=== PATIENT | female | born 1990 | race Caucasian/White ===

== ENCOUNTER 2022-03-26 08:46 | Outpatient (REF) | payer OTHER, SELFPAY ==
[2022-03-26 11:33] LABS: Hematocrit 42.3 % (37.0-47.0); Hemoglobin 14.4 g/dl (12.0-16.0); Mean Corpuscular Hemoglobin 29.4 pg (27.0-33.0); Mean Corpuscular Volume 86.5 fL (80.0-98.0); Mean Platelet Volume 11.4 fL (9.4-12.3); Platelet Count 216 X10*3/uL (160-400); Red Blood Count 4.89 X10*6/uL (4.20-5.50); Red Cell Distribution Width 11.9 % (11.0-16.0); White Blood Count 4.2 X10*3/uL (4.8-10.8)
[2022-03-26 12:05] LABS: Alanine Aminotransferase 30 U/L (0-31); Albumin Level 4.5 g/dL (3.5-5.0); Alkaline Phosphatase 48 U/L (39-117); Anion Gap 13 (12-20); Aspartate Amino Transferase 22 U/L (5-31); Bilirubin Total 1.2 mg/dL (0.0-1.0); Blood Urea Nitrogen 10 mg/dL (9-16); Calcium 8.8 mg/dL (8.4-10.2); Carbon Dioxide 23 mmol/L (22-29); Chloride 108 mmol/L (96-108); Cholesterol 157 mg/dL; Estimated Glomerular Filt Rate > 60; Glucose Fasting 89 mg/dL (60-99); HDL Cholesterol 57 mg/dL; LDL Cholesterol Calculated 86 mg/dl; Potassium 4.3 mmol/L (3.3-5.1); Sodium 140 mmol/L (135-145); Total Protein 7.2 g/dL (6.5-8.0); Triglycerides 72 mg/dL
[2022-03-26 12:10] LABS: TSH reflex Free T4 1.85 uIU/mL (0.32-4.0)
== END 2022-03-26 08:47 | disposition home or self-care (01) ==
LOC: HO.WFDLDS 08:46
PROVIDERS: Visit Provider Hospitalist
DX: Z00.00 Encounter for general adult medical examination without abnormal findings (principal)
CPT/HCPCS: 36415; 80053; 80061; 84443; 85027

== ENCOUNTER 2022-06-04 13:04 | Outpatient (REF) | payer OTHER, SELFPAY ==
[2022-06-04 17:30] LABS: CT PCR NOT DETECTED (Not Detect.); NG PCR NOT DETECTED (Not Detect.)
[2022-06-05 10:23] LABS: BV Int Neg Control Negative (Negative); BV Int Pos Control Positive (Positive)
[2022-06-08 06:37] LABS: HPV mRNA E6/E7 rflx Not Detected (Not Detected)
== END 2022-06-04 13:05 | disposition home or self-care (01) ==
LOC: HO.LNP 13:04
PROVIDERS: Visit Provider Advanced Practice Midwife
DX: Z01.419 Encounter for gynecological examination (general) (routine) without abnormal findings (principal); Z11.3 Encounter for screening for infections with a predominantly sexual mode of transmission
CPT/HCPCS: 87480; 87491; 87510; 87591; 87624; 87660; 88142

== ENCOUNTER 2022-06-21 16:44 | Outpatient (REF) | payer OTHER, SELFPAY | END 2022-06-21 16:45 | disposition home or self-care (01) | LOC: HO.LNP 16:44 | PROVIDERS: Visit Provider Emergency Medicine | DX: R30.0 Dysuria (principal) | CPT/HCPCS: 87086 ==

== ENCOUNTER → 2022-07-21 11:00 | Outpatient (BNVA) | payer OTHER, SELFPAY | PROVIDERS: PCP Hospitalist; Visit Provider Advanced Practice Midwife | DX: Z30.017 Encounter for initial prescription of implantable subdermal contraceptive (principal) | CPT/HCPCS: 11983; 81025; J7307 ==

== ENCOUNTER → 2022-10-08 14:50 | Outpatient (BNVA) | payer OTHER, SELFPAY | PROVIDERS: PCP Hospitalist; Visit Provider Advanced Practice Midwife | DX: Z13.89 Encounter for screening for other disorder (principal) ==

== ENCOUNTER 2023-03-04 08:30 | Outpatient (AMB) | payer OTHER, SELFPAY ==
--- NOTE | 2023-03-04 08:34 | MHC.OFFVIS ---
Intake Vital Signs 03/04/23 08:37 Height 5 ft 4 in Weight 118 lb BMI 20.3 BP 108/66 Intake Visit Reasons: Nexplanon removal consult Intake Note: The patient agreed to use of a nuclear medical tech during this encounter. Scribed for GLEN Santos by Alexia Hennessy, nuclear medical tech, on 03/04/2023 at 8:48 am EST. Manager Clinical Research Required: No Information Interpreted: non-clinical & clinical Accompanied by: Self / Same As Patient Allergies Penicillins Allergy (Mild, Verified 03/04/23 08:37) Rash Sulfa (Sulfonamide Antibiotics) Allergy (Verified 03/04/23 08:37) Rash Is last menstrual period known: No HPI HPI Comments History of Present Illness Details She is here for Nexplanon removal consult. Reports she wants to remove Nexplanon because she has low libido, believes BC affects her hormonal level, has vaginal dryness and has been on BC since she was 18 years. Her and her partner wants to just do condoms for now to regulate body without BC. Nexplanon removal today. See procedure note. [facility] Medical History (Updated 03/04/23 @ 09:02 by Alexia Hennessy) Low libido Nexplanon removal Vaginal dryness Family History Mother Hypertension Hypercholesteremia Paternal Grandmother Cancer of uterus Social History Household Members: None Housing: Apartment Alcohol intake: never Patient Tobacco Use Status: Never used Tobacco e-Cigarette/Vaping Use: Never Used Substance Use Type: Marijuana Cognitive needs: No Hearing needs: No Vision needs: No Female Reproductive History Menstrual Age of Menarche: 14 control method: condoms Physical Exam Vital Signs: Last Vital Signs BP 108/66 03/04/23 08:37 BMI result Body Mass Index 20.3 Const General: cooperative, healthy appearing, comfortable, no acute distress, well developed, alert and awake Extrem General: Yes normal to inspection Left upper extremity: normal to inspection Office Procedures Contraception Insert/Removal Details Details: HPI She was counseled and now consented as to the risks and benefits including: bleeding, pain, scarring, nerve damage and infection. Patient agrees to proceed with the procedure. Procedure The patient was placed in a supine position with her non dominant left hand resting under her head. The insertion site was located: 8-10cm from the medial epicondyle notch of the humerus, posterior to the sulcus, between the triceps and biceps muscle. The area of the previous implant was identified and the distal tip located. This area was cleansed with an alcohol prep and 1 cc of 2% Lidocaine on a 25 gauge needle and syringe was utilized for adequate anesthesia to the insertion site. After ascertaining adequate anesthesia, the area was prepped with Betadine solution. The skin over the distal tip was incised with a #11 blade scalpel and the capsule was located and entered freeing the implant from the canal. The implant was removed with a gentle tug using a mosquito clamp and removed intact. Direct pressure was applied to the insertion site for hemostasis, minimal bleeding was observed. Steri strips, Tegaderm covering, gauze pads, and Alfredito wrap dressing were secured with paper tape. The patient tolerated the procedure well and left the office in good condition. Nexplanon removed without complication today. Plan Instructed to leave steri-strips in place for 3-5 days and gauze and bandage for 24 hours to help prevent infection. She can take Tylenol or ibuprofen for pain prn. She was instructed to go to ER if she experiences any increased pain, fever, redness, pus or drainage or flu like sx. Leave steri-strips in place for 3-5 days and gauze and bandage for 24 hours to help prevent infection. Can take Tylenol or ibuprofen for pain prn. Go to ER if she experiences any pain, fever, redness, or [place] sx. [address]359 - Removal Results AMB Test Urine AMB Test Urine Negative Last Edit by Maine Hernandez CMA on 03/04/23 08:43 Results Reviewed Results Reviewed: Laboratory Last Values [facility] Negative 03/04/23 08:43 Assessment & Plan Assessment & Plan (1) Encounter for surveillance of Nexplanon subdermal contraceptive: Code(s): Z30.46 - Encounter for surveillance of implantable subdermal contraceptive Plan: Discussed: Was counseled if she did a early removal her insurance may not cover for reinsertion. She was understandable. All of her questions and concerns were addressed to the best of my ability and shared decision making. She is agreeable to plan of care. (2) Vaginal dryness: Code(s): N89.8 - Other specified noninflammatory disorders of vagina Plan: Recommend Replens, [place] jelly, Astroglide or coconut oil for vaginal dryness. (3) Nexplanon removal: Code(s): Z30.46 - Encounter for surveillance of implantable subdermal contraceptive Plan: See procedure note. (4) Low libido: Code(s): R68.82 - Decreased libido Orders: Orders AMB HCG Urine Test Today Z32.02 - Encounter for test, result negative Coding Level of Care Code Procedure Only Diagnoses Encounter for surveillance of Nexplanon subdermal contraceptive Z30.46 Vaginal dryness N89.8 Nexplanon removal Z30.46 Low libido R68.82 CPT Codes Details - Contraception: 25481 - Removal ([id number])
[2023-03-04 08:37] VITALS: BP 108/66; BMI 20.3
== END 2023-03-04 09:27 | disposition home or self-care (01) ==
LOC: HO.HWS 08:30
PROVIDERS: PCP Hospitalist; Visit Provider Advanced Practice Midwife
DX: Z30.46 Encounter for surveillance of implantable subdermal contraceptive (principal); N89.8 Other specified noninflammatory disorders of vagina; R68.82 Decreased libido; Z32.02 Encounter for pregnancy test, result negative
CPT/HCPCS: 11982

== ENCOUNTER → 2023-03-04 08:30 | Outpatient (BNVA) | payer OTHER, SELFPAY | PROVIDERS: PCP Hospitalist; Visit Provider Advanced Practice Midwife | DX: Z30.46 Encounter for surveillance of implantable subdermal contraceptive (principal); R68.82 Decreased libido; N89.8 Other specified noninflammatory disorders of vagina; Z32.02 Encounter for pregnancy test, result negative | CPT/HCPCS: 11982; 81025 ==

== ENCOUNTER 2023-03-31 08:13 | Outpatient (AMB) | payer OTHER, SELFPAY ==
--- NOTE | 2023-03-31 08:20 | A.OFFPC_ITS ---
Vital Signs 03/31/23 08:27 Height 5 ft 4 in Weight 118 lb 4 oz BMI 20.3 BP 98/62 Blood Pressure Location Lt brachial Position Sitting Respiration 13 Pulse 76 Pulse Source Pulse Oximeter Temp 97.7 F Temp Source Temporal Artery Scan Pulse Oximetry (%) 98 Oxygen Delivery Method Room Air Intake Visit Reasons: physical Intake Note: Patient presents for a physical with concerns for a lump on her right breast. Patient would like to request a referral for dermatology due to recent family history increasing with skin cancer/discorders. Match Up Worker Required: No Accompanied by: Self / Same As Patient Allergies Penicillins Allergy (Mild, Verified 03/31/23 08:33) Rash Sulfa (Sulfonamide Antibiotics) Allergy (Verified 03/31/23 08:33) Rash Medication List - Last Reconciled 03/31/23 by Maribel Manuel CNP No Known Home Meds Tobacco use date assessed: 03/31/23 Dental Screening Dental Screen Date: 03/31/23 Did you have a dental visit in the last 12 months?: No Did you have a dental problem in the last 6 months where you did not have access to dental care?: No Was dental information given to patient?: Patient has dentist HPI HPI Comments History of Present Illness Details 32 y/o female presents for a complete ph ysical exam. She reports history of generalized anxiety disorder for which she has been seen at therapist weekly for the past 1 year. She denies history of depression. She notes she noticed a lump to her left breast a week ago. However, she has been experiencing intermittent soreness to the lump for the past 2 months. She requests dermatology evaluation d/t family h/o skin cancer. No acute symptoms at this time. She notes she is sexually active, in a monogamous relationship, and practices safe sex. She has no concerns for STD. She notes that her last pap smear test was in June 2023: normal. Recommended to follow up in 3 years. [facility] Medical History (Updated 03/31/23 @ 09:10 by Maribel Manuel CNP) Nexplanon removal Vaginal dryness Low libido Family History (Updated 03/31/23 @ 08:31 by Gema Cassidy) Mother Hypertension Hypercholesteremia Paternal Grandmother Cancer of uterus Father Skin disorder Autoimmune dermatitis Social History Household Members: None Housing: Apartment Alcohol intake: never Patient Tobacco Use Status: Never used Tobacco e-Cigarette/Vaping Use: Never Used Substance Use Type: Marijuana service: No Current occupational status: employed Cognitive needs: No Hearing needs: No Vision needs: No Female Reproductive History Menstrual Age of Menarche: 14 Questionnaire PHQ-9 Over the last 2 weeks, how often have you been bothered by any of the following problems? 1. Little interest or pleasure in doing things: several days 2. Feeling down, depressed, or hopeless: several days 3. Trouble falling or staying asleep, or sleeping too much: several days 4. Feeling tired or having little energy: several days 5. Poor appetite or overeating: several days 6. Feeling bad about yourself - or that you are a failure or have let yourself or your family down: several days 7. Trouble concentrating on things, such as reading the newspaper or watching television: more than half the days 8. Moving or speaking so slowly that other people could have noticed. Or the opposite - being so fidgety or restless that you have been moving around a lot more than usual: not at all 9. Thoughts that you would be better off or of hurting yourself in some way: not at all Total score: 8 Depression Screening Interpretation: Positive Source: Developed by Drs. Tony Maldonado, Leigh Ann Weeks, Yaya Rodriguez and colleagues, with an educational jose from [employer]. Thrive Questionnaire Date Thrive assessed: 03/31/23 I am a: Patient What is your living situation today?: I have a steady place to live Within the past 12 months, did the food you bought not last and you didn't have the money to get more?: Never true Within the past 12 months, did you worry whether your food would run out before you got money to buy more?: Never true Do you have trouble paying for medicines?: No Do you have trouble getting transportation to medical appointments?: No Do you have trouble paying your heating and electricity bill?: No Do you have trouble taking care of your child, family member or friend?: No Do you have trouble with day-to-day activities such as bathing, preparing meals, shopping, managing finances, etc.?: No Are you currently unemployed and looking for a job?: No Are you interested in more education?: No Please select the resources that you would like help with: None Currently or been in a relationship where the following occur: no concerns reported AUDIT C Alcohol Use Questionnaire (AUDIT-C) 1. How often do you have a drink containing alcohol?: Never 3. How often do you have six or more drinks on one occasion?: Never Total Score: 0 YURI-7 AMB Questionnaire YURI-7 Date YURI - 7 assessed: 09/01/22 Feeling nervous, anxious, or on edge: 1 = Several days Not being able to stop or control worryin = Several days Worrying too much about different things: 1 = Several days Trouble relaxin = Several days Being so restless that it is hard to sit still: 1 = Several days Becoming easily annoyed or irritable: 1 = Several days Feeling afraid as if something awful might happen: 1 = Several days Total YURI-7 score (0-4 normal; 5-9 mild; 10-14 moderate; 15-21 severe): 7 Source: Developed by Drs. Tony Maldonado, Leigh Ann Weeks, Yaya Rodriguez and colleagues, with an educational jose from [employer]. Review of Systems Const Details: Denies chills, Denies fatigue, Denies fever(s), Denies headache(s) and Denies weakness HEENT Denies change in vision, Denies dizziness, Denies headache(s), Denies hearing loss, Denies nasal congestion, Denies sinus pain, Denies sinus pressure and Denies sore throat Card Denies chest pain, Denies lightheadedness, Denies dyspnea and Denies other (palpitations) Resp Denies cough, Denies dyspnea and Denies wheezing GI Denies abdominal pain, Denies melena, Denies hematochezia, Denies change in bowel habits, Denies dyspepsia and Denies nausea Denies hematuria and Denies dysuria Musc Denies abnormal gait, Denies myalgias, Denies arthralgias, Denies numbness and Denies tingling Skin/Breast Reports lump to left breast, Denies rash, Denies unusual bruising and Denies wounds Neuro Denies abnormal gait, Denies dizziness, Denies headache(s), Denies memory loss, Denies numbness, Denies Sensory deficit (Neuro), Denies tingling and Denies weakness Psych Denies anxiety, Denies depression and Denies memory loss Endo Denies cold intolerance, Denies fatigue, Denies heat intolerance, Denies polydipsia and Denies polyuria Rolo/Lymph Denies easy bleeding and Denies easy bruising Aller/Immun Denies wheezing Physical exam (Primary Care) Vital Signs: Last Vital Signs Temp 97.7 F 03/31/23 08:27 Pulse 76 03/31/23 08:27 Resp 13 03/31/23 08:27 BP 98/62 03/31/23 08:27 Pulse Ox 98 03/31/23 08:27 Oxygen Delivery Method Room Air 03/31/23 08:27 BMI result Body Mass Index 20.3 Tobacco/Smoking Status: Tobacco use Status Tobacco use date assessed 03/31/23 03/31/23 08:31 Patient Tobacco Use Status Never used Tobacco 03/31/23 08:22 e-Cigarette/Vaping Use Never Used 03/31/23 08:22 PHQ-9: PHQ-9 Score PHQ-9: Total score 8 03/31/23 09:05 Depression Screening Interpretation: Positive Thrive Assessment: Date of Thrive Assessment Date Thrive assessed 03/31/23 03/31/23 09:05 Currently or been in a relationship where the following occur: no concerns reported Const Other: General: no acute distress, well developed, alert and awake Nutritional Appearance: well nourished Orientation/consciousness: patient oriented x3 HENMT Head is normocephalic Impacted cerumen to both ears occluding the TMs. Ear canals are normal Nasal turbinates and oropharynx are pink and moist Sinuses are nontender with palpation No auricular or cervical lymphadenopathy Ears: hearing grossly normal bilaterally and TM's normal bilaterally General nose exam: Normal external nose present and Normal nares present Mouth: Normal oral and palatal mucosa present and moist mucous membranes Teeth and gingiva: dentition normal Throat: Yes oropharynx normal Eyes Pupils: Equal, round and reactive pupils present and Pupil accommodation reflex normal EOM: EOMs intact bilaterally Neck Neck: Yes normal visual inspection, Yes no lymphadenopathy and Yes trachea midline Thyroid: Thyroid normal Carotids: no bruits Lymphatic: no lymphadenopathy noted Chest Chest palpation & inspection: normal inspection of the chest Resp Effort & Inspection: normal respiratory effort Auscultation: clear to auscultation bilaterally Cardio Rate: regular rate Rhythm: regular rhythm Heart sounds: S1 normal heart sound present, S2 normal heart sound present, no gallops, no murmurs and no rubs Bruits: no abdominal aortic bruits and no carotid bruits GI Palpation (GI): No Abdominal aortic bruit present, Soft to palpation, nontender, No hepatosplenomegaly present and No Rebound tenderness present Auscultation: normal bowel sounds General: Yes no CVA tenderness Back/Spine/Pelvis Back: no CVA tenderness Cervical Spine: cervical ROM normal and No Cervical spine tenderness Thoracic/Lumbar Spine: thoraco-lumbar ROM normal, No pain with thoraco-lumbar ROM, No thoracic spinal tenderness and No lumbar spinal tenderness Skin General: warm and dry. Normal skin color. Normal skin turgor. Tenderness to palpation at 08:00 o'clock to the left breast proximal to the sternum, normal breast tissues palpated, no lump, rash, edema, or overt trauma noted Lesions: no lesions Rashes: no rashes Trauma: no lacerations or abrasions Wounds: no wounds Nails: normal Neuro General: patient oriented x3, gait normal and CN's II-XI intact bilaterally Cranial nerves: Yes Equal, round and reactive pupils present Cognition (Neuro): normal cognition Gait exam (Neuro): Normal gait present Motor exam (neuro): 5/5 motor strength present throughout Sensory Exam: No Sensory deficit (Neuro) Deep tendon reflexes (DTR's): Right patellar reflex intensity grade: 2+ and Left patellar reflex intensity grade: 2+ Extrem General: Yes normal to inspection, No edema and No calf tenderness Psych Appearance: grossly normal Affect: normal affect Attitude: cooperative Thought process: Normal thought process present Assessment and Plan Assessment & Plan (1) Normal physical exam: Code(s): Z00.00 - Encounter for general adult medical examination without abnormal findings Plan: No significant physical restrictions or limitations noted Advised to schedule her next physical for a year from today Return with symptoms or concerns Verbalized understanding and agreed with the treatment plan. (2) Soreness breast: Code(s): N64.4 - Mastodynia Plan: Reports lump with intermittent tenderness to her left breast Tenderness to palpation at 08:00 o'clock to the left breast proximal to the sternum, normal breast tissues palpated, no lump, rash, edema, or overt trauma noted Ultrasound ordered May take Tylenol ibuprofen for pain or discomfort Warm compresses encouraged Follow-up with worsening or new symptoms Verbalized understanding and agreed with treatment plan. (3) Anxiety and depression: Code(s): F41.9 - Anxiety disorder, unspecified; F32.A - Depression, unspecified Plan: Reports history of generalized anxiety disorder. Denies history of depression PHQ-9 and YURI-7 scores revealed mild depression and anxiety Declines medication treatment Continue with weekly therapy Routine exercise encouraged May contact PCP if she changes her mind on medication treatment Follow-up with worsening or new symptoms Verbalized understanding and agreed with treatment plan. (4) Impacted cerumen of both ears: Code(s): H61.23 - Impacted cerumen, bilateral Plan: Impacted cerumen to both ears occluding the TMs. Ear canals are normal Normal hearing May return for cerumen removal with ear pain or impaired hearing Verbalized understanding and agreed with the plan. Orders: Orders US breast LT complete Today N64.4 - Mastodynia Coding Level of Care Code Est Pt Prev Care 18-39y(18435) Diagnoses Normal physical exam Z00.00 Soreness breast N64.4 Anxiety and depression F41.9; F32.A Impacted cerumen of both ears H61.23
[2023-03-31 08:27] VITALS: BP 98/62; PULSE 76; RESP 13; TEMP 36.5; O2SAT 98; BMI 20.3
== END 2023-03-31 08:57 | disposition home or self-care (01) ==
PROVIDERS: PCP Hospitalist; Visit Provider Nurse Practitioner Family
DX: Z00.00 Encounter for general adult medical examination without abnormal findings (principal); N64.4 Mastodynia; F41.9 Anxiety disorder, unspecified; F32.A Depression, unspecified; H61.23 Impacted cerumen, bilateral
CPT/HCPCS: 99395

== ENCOUNTER 2023-04-18 13:20 | Outpatient (REF) | payer OTHER, SELFPAY ==
--- NOTE | ~2023-04-18 | US_ITS ---
EXAMINATION: MM DIAGNOSTIC DIGITAL BREAST TOMOSYNTHESIS, BILATERAL US BREAST LIMITED, LEFT MAMMOGRAPHY: CLINICAL INFORMATION: 33-year-old female complaining of palpable area with associated tenderness left breast approximately 8:00-9:00 axis approximately 9 cm from the nipple. COMPARISON: Mammography: None. Baseline exam. TECHNIQUE: Digital breast tomosynthesis is performed in both the craniocaudal and mediolateral oblique views along with computer-aided detection (CAD). Synthesized 2D images are generated from the tomosynthesis. In addition, 3-D spot compression left CC and MLO views were included of the area of concern medial left breast. FINDINGS: The breasts are extremely dense, which lowers the sensitivity of mammography (ACR BI-RADS breast composition Category d). Diagnostic views demonstrate no suspicious masses, suspicious grouped calcifications, or areas of architectural distortion in either breast. In the area of palpable concern and tenderness, left breast 8-9 o'clock, approximately 9 cm from the nipple, there is no underlying mass, distortion, or other abnormality. Only normal heterogeneously to extremely dense breast tissue is noted. No mammographic correlate. ULTRASOUND: CLINICAL INFORMATION: 33-year-old female complaining of palpable area with associated tenderness left breast approximately 8:00-9:00 axis approximately 9 cm from the nipple. COMPARISON: None TECHNIQUE: Targeted sonographic evaluation left breast 8-9 o'clock axis was performed as guided by the patient using a high frequency linear transducer. Selected archived documentation. FINDINGS: LEFT BREAST: There is dense and heterogeneously dense breast parenchyma identified. No suspicious mass is seen. There is no pathologic acoustic shadowing. There is no cystic abnormality. No ultrasonographic correlate to the patient's complaint or palpable focus of concern at the 8-9 o'clock axis left breast. US/US breast LT limited mamm only IMPRESSION: There are no findings suspicious for malignancy in either breast. There is no imaging correlate to the focus of palpable concern and pain in the left breast 8-9 o'clock axis. Recommend clinical management. Decision to biopsy a palpable abnormality without imaging correlate must be determined on a clinical basis. Otherwise, recommend resuming annual routine mammographic screening at age 40. OVERALL ASSESSMENT: Mammography: BI-RADS 1 - Negative Ultrasound: BI-RADS 1 - Negative RECOMMENDATION: 1 year F/U Results were provided to the patient at time of visit by the technologist. This patient's information was entered into a reminder system with a target due date for their next mammogram.
== END 2023-04-18 13:21 | disposition home or self-care (01) ==
LOC: HO.MAMMO 13:20
PROVIDERS: PCP Nurse Practitioner Family; Visit Provider Nurse Practitioner Family
DX: N64.4 Mastodynia (principal)
CPT/HCPCS: 76642; 77062; 77066

== ENCOUNTER 2023-06-30 09:02 | Outpatient (AMB) | payer OTHER, SELFPAY ==
[2023-06-30 09:07] VITALS: BP 100/62; BMI 20.4
--- NOTE | 2023-06-30 09:07 | MHC.OFFVIS ---
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 She had her Nexplanon removed in February and she feels her mood has improved dramatically she still has vaginal dryness and she and her partner are working with different condoms and different lubricants but nothing perfect yet. 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 [facility] Medical History Nexplanon removal Vaginal dryness Low libido Family History Mother Hypertension Hypercholesteremia Paternal Grandmother Cancer of uterus Father Skin disorder Autoimmune dermatitis Social History Household Members: None Housing: Apartment Alcohol intake: never Patient Tobacco Use Status: Never used Tobacco e-Cigarette/Vaping Use: Never Used Substance Use Type: Marijuana service: No Current occupational status: employed Cognitive needs: No Hearing needs: No Vision needs: No Female Reproductive History Menstrual Age of Menarche: 14 Duration of menses: 3-5 days Date of last menstrual period: 06/11/23 control method: none Total pregnancies: 0 Date of last pap smear: 06/04/22 (negative) History of abnormal pap smear: No Physical Exam Vital Signs: Last Vital Signs BP 100/62 06/30/23 09:07 BMI result Body Mass Index 20.4 Const General: healthy appearing, comfortable, no acute distress, well developed and alert Nutritional Appearance: average body habitus Orientation/consciousness: patient oriented x3 Limitations: no limitations HEENT Head: Yes normocephalic Neck Neck: Yes normal visual inspection Chest Chest palpation & inspection: normal inspection of the chest Breast/axilla inspection: normal inspection of the breasts and normal inspection of the axillae Breast/axilla palpation: normal palpation of the breasts and normal palpation of the axillae Resp Effort & Inspection: normal respiratory effort GI Inspection: Yes normal to inspection, No Abdominal wall edema and No distended Palpation (GI): Soft to palpation and nontender Other: Vaginal discharge is white and completely consistent with normal healthy luteal phase discharge. Cervix nulliparous long close thick pink smooth uterus small anteverted mobile nontender adnexa nontender not enlarged good tone with Kegel General: Yes bladder normal to palpation External Female Exam: normal external appearance and normal appearance of the urethra Speculum Exam - Vagina: normal appearance of the vagina, normal palpation and normal vaginal discharge Speculum Exam - Cervix: normal appearance of the cervix, normal palpation and nontender Bimanual exam- vagina & uterus: normal bimanual exam, normal palpation, uterine size normal, bladder normal to palpation, consistency normal, normal palpation, uterine mobility normal, uterine shape normal, No Cervical tenderness present, non-tender and no cervical motion tenderness Bimanual Exam- Adnexa, other: normal adnexae, no masses, normal and No adnexal tenderness Neuro General: patient oriented x3 Assessment & Plan Assessment & Plan (1) Vaginal dryness: Code(s): N89.8 - Other specified noninflammatory disorders of vagina (2) Low libido: Code(s): R68.82 - Decreased libido (3) Cervical cancer screening: Comment: 06/04/22 pap is neg w neg hpv Code(s): Z12.4 - Encounter for screening for malignant neoplasm of cervix (4) Well woman exam with routine gynecological exam: Code(s): Z01.419 - Encounter for gynecological examination (general) (routine) without abnormal findings Plan -----Discussed in this visit the following: healthy balanced diet, regular and consistent exercise, getting recommended health screens, doing the best she can for her particular health concerns, kegel exercises, pap smear screening and followup recommendations, mammography screening and SBE, normal changes in cycles in her life stage--- . Discussed her perceptions after removal of the Nexplanon and her vaginal dryness and how she is managing it she is doing very well and I really did not have any other suggestions other than increasing water intake. We will see her every year reviewed screening intervals for Pap smear screening she sees her primary regularly and does not have any other health concerns. Coding Level of Care Code Est Pt Prev Care 18-39y(38699) Diagnoses Vaginal dryness N89.8 Low libido R68.82 Cervical cancer screening Z12.4 Well woman exam with routine gynecological exam Z01.419
== END 2023-06-30 09:47 | disposition home or self-care (01) ==
PROVIDERS: PCP Hospitalist; Visit Provider Advanced Practice Midwife
DX: Z01.419 Encounter for gynecological examination (general) (routine) without abnormal findings (principal); N89.8 Other specified noninflammatory disorders of vagina; R68.82 Decreased libido
CPT/HCPCS: 99395

== ENCOUNTER → 2023-06-30 09:02 | Outpatient (BNVA) | payer OTHER, SELFPAY | PROVIDERS: PCP Hospitalist; Visit Provider Advanced Practice Midwife ==

== ENCOUNTER 2023-12-26 13:02 | Outpatient (AMB) | payer OTHER, SELFPAY ==
[2023-12-26 13:03] VITALS: BP 102/70; BMI 20.3
--- NOTE | 2023-12-26 13:03 | A.OFFVIS_ITS ---
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 She had been on the Nexplanon for 4 different Nexplanon and she decided to go off of it because of decreased libido and dryness and mood changes. She has felt like things have gotten back to normal with her normal age appropriate libidoi.e.different from when she was very young person) but still normal and lubrication feels normal as well she has been using condoms however she feels very dry with them no matter what they do with lubrication. She remembers being on Loestrin FB control pills and did well with them but at the time she was worried about not remembering to take them consistently so that is why she change to Nexplanon at the time she feels like she would be much better remembering pills now and wants to go back on those because they worked very well for her. 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 She used to get heavy very crampy periods for 7 days when she was a teenager that is why she went on control pills her periods disappeared when she was on the Nexplanon x4, and they have now returned and she has been tracking them and they been mostly 20 day cycles with a couple that were 51 days and 1 of those she remembers that she took plan B in the middle of that cycle so that could have interrupted ovulation she otherwise has been aware of ovulation in the shorter cycles. Her last menstrual periods started December 16 so she is currently day 9 of her cycle so if this is going to be irregular 26 day cycle is probably too late to start the pills to interrupt ovulation so my recommendation to her is that she wait to the 1st or 2nd day of the next period, and start pills then. I reviewed danger signs and what to look for and she is aware and she would take the pills same time every day and thinks she will have no trouble script sent for the generic equivalents of her previous pill we will see her in 3-4 months [facility] Medical History Nexplanon removal Vaginal dryness Low libido Family History Mother Hypertension Hypercholesteremia Paternal Grandmother Cancer of uterus Father Skin disorder Autoimmune dermatitis Social History Household Members: None Housing: Apartment Alcohol intake: never Patient Tobacco Use Status: Never used Tobacco e-Cigarette/Vaping Use: Never Used Substance Use Type: Marijuana service: No Current occupational status: employed Cognitive needs: No Hearing needs: No Vision needs: No Female Reproductive History Menstrual Age of Menarche: 14 Duration of menses: 3-5 days Date of last menstrual period: 12/17/23 control method: none Date of last pap smear: 06/04/22 (negative) Physical Exam Vital Signs: Last Vital Signs BP 102/70 12/26/23 13:03 BMI result Body Mass Index 20.3 Assessment & Plan Assessment & Plan (1) control counseling: Code(s): Z30.09 - Encounter for other general counseling and advice on contraception Category: Medical Plan Patient is here to talk about control. She had been on the Nexplanon for 4 different Nexplanon and she decided to go off of it because of decreased libido and dryness and mood changes. She has felt like things have gotten back to normal with her normal age appropriate libidoi.e.different from when she was very young person) but still normal and lubrication feels normal as well she has been using condoms however she feels very dry with them no matter what they do with lubrication. She remembers being on Loestrin FB control pills and did well with them but at the time she was worried about not remembering to take them consistently so that is why she change to Nexplanon at the time she feels like she would be much better remembering pills now and wants to go back on those because they worked very well for her. 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 She used to get heavy very crampy periods for 7 days when she was a teenager that is why she went on control pills her periods disappeared when she was on the Nexplanon x4, and they have now returned and she has been tracking them a nd they been mostly 20 day cycles with a couple that were 51 days and 1 of those she remembers that she took plan B in the middle of that cycle so that could have interrupted ovulation she otherwise has been aware of ovulation in the shorter cycles. Her last menstrual periods started December 16 so she is currently day 9 of her cycle, so if this is going to be a regular 26 day cycle is probably too late to start the pills to interrupt ovulation so my recommendation to her is that she wait to the 1st or 2nd day of the next period, and start pills then. I reviewed danger signs and what to look for and she is aware and she would take the pills same time every day and thinks she will have no trouble script sent for the generic equivalents of her previous pill we will see her in 3-4 months Medications: New norethindrone-e.estradiol-iron 1 mg-20 mcg (24)/75 mg (4) 1 tab PO DAILY 84 tab s 4RF Coding Level of Care Code Est Pt Level 3 (89858) Diagnoses control counseling Z30.09
== END 2023-12-26 13:49 | disposition home or self-care (01) ==
LOC: HO.HWSM 13:02
PROVIDERS: PCP Hospitalist; Visit Provider Advanced Practice Midwife
DX: Z30.09 Encounter for other general counseling and advice on contraception (principal)
CPT/HCPCS: 99213

== ENCOUNTER → 2023-12-26 13:02 | Outpatient (BNVA) | payer OTHER, SELFPAY | PROVIDERS: PCP Hospitalist; Visit Provider Advanced Practice Midwife ==

== ENCOUNTER 2023-12-27 15:59 | Outpatient (AMB) | payer OTHER, SELFPAY ==
[2023-12-27 16:16] VITALS: BP 108/64; PULSE 81; RESP 14; TEMP 36.5; O2SAT 99; BMI 19.9
--- NOTE | 2023-12-27 16:16 | A.OFFPC_ITS ---
Vital Signs 12/27/23 16:16 Height 5 ft 4 in Weight 116 lb 2 oz BMI 19.9 BP 108/64 Blood Pressure Location Rt brachial Position Sitting Respiration 14 Pulse 81 Pulse Source Pulse Oximeter Temp 97.7 F Temp Source Temporal Artery Scan Pulse Oximetry (%) 99 Oxygen Delivery Method Room Air Intake Visit Reasons: Rash on chest and other skin related questions Director Business Systems Required: No Accompanied by: Self / Same As Patient Allergies Penicillins Allergy (Mild, Verified 12/27/23 16:51) Rash Sulfa (Sulfonamide Antibiotics) Allergy (Verified 12/27/23 16:51) Rash Medication List - Last Reconciled 12/27/23 by Maribel Manuel CNP norethindrone-e.estradiol-iron 1 mg-20 mcg (24)/75 mg (4) 1 tab PO DAILY Tobacco use date assessed: 12/27/23 Dental Screening Dental Screen Date: 12/27/23 Did you have a dental visit in the last 12 months?: Yes Did you have a dental problem in the last 6 months where you did not have access to dental care?: No Was dental information given to patient?: Patient has dentist HPI HPI Comments History of Present Illness Details 33-year-old female presents with complai nts of non-itchy rash to her chest, between her breasts, and has been present since January or February of 2023 and was initially intermittent - came on when her skin was wet and disappeared when it is dried. However, the rash has been persistent in the past few months. No other symptoms. [facility] Medical History (Updated 12/27/23 @ 17:08 by Maribel Manuel CNP) Nexplanon removal Vaginal dryness Low libido Surgical History (Updated 12/27/23 @ 16:25 by RADHA Clancy) No pertinent past surgical history Family History Mother Hypertension Hypercholesteremia Paternal Grandmother Cancer of uterus Father Skin disorder Autoimmune dermatitis Social History Household Members: None Housing: Apartment Alcohol intake: never Patient Tobacco Use Status: Never used Tobacco e-Cigarette/Vaping Use: Never Used Substance Use Type: Marijuana service: No Current occupational status: employed 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 Tony Maldonado, Leigh Ann Weeks, Yaya Rodriguez and colleagues, with an educational jose from [employer]. Review of Systems Const Details: Const Denies chills, Denies fatigue, Denies fever(s), Denies headache(s) and Denies weakness ENT Denies dizziness and Denies headache(s) Card Denies chest pain, Denies lightheadedness, Denies dyspnea and Denies other (Palpitations) Resp Denies cough, Denies dyspnea, Denies wheezing and Denies other ( shortness of breath) GI Denies abdominal pain, Denies melena, Denies hematochezia, Denies change in bowel habits, Denies dyspepsia and Denies nausea Denies hematuria and Denies dysuria Musc Denies abnormal gait, Denies myalgias, Denies arthralgias, Denies numbness and Denies tingling Skin/Breast Reports as per HPI Neuro Denies abnormal gait, Denies dizziness, Denies headache(s), Denies memory loss, Denies numbness, Denies Sensory deficit (Neuro), Denies tingling and Denies weakness Psych Denies anxiety, Denies depression, Denies memory loss Endo Denies cold intolerance, Denies fatigue, Denies heat intolerance, Denies polydipsia and Denies polyuria Aller/Immun Denies wheezing Physical exam (Primary Care) Vital Signs: Last Vital Signs Temp 97.7 F 12/27/23 16:16 Pulse 81 12/27/23 16:16 Resp 14 12/27/23 16:16 BP 108/64 12/27/23 16:16 Pulse Ox 99 12/27/23 16:16 Oxygen Delivery Method Room Air 12/27/23 16:16 BMI result Body Mass Index 19.9 Tobacco/Smoking Status: Tobacco use Status Tobacco use date assessed 12/27/23 12/27/23 16:27 Patient Tobacco Use Status Never used Tobacco 12/27/23 16:16 e-Cigarette/Vaping Use Never Used 12/27/23 16:16 Thrive Assessment: Date of Thrive Assessment Date Thrive assessed 03/31/23 12/27/23 16:16 Const Other: General: no acute distress and well developed Nutritional Appearance: well nourished Orientation/consciousness: patient oriented x3 [facility] Head: Yes normocephalic and Yes atraumatic Eyes General: appearance normal, both eyes and all related structures Pupils: Equal, round and reactive pupils present EOM: EOMs intact bilaterally Resp Effort & Inspection: normal respiratory effort Auscultation: clear to auscultation bilaterally Cardio Rate: regular rate Rhythm: regular rhythm Heart sounds: S1 normal heart sound present, S2 normal heart sound present, no gallops, no murmurs and no rubs GI Palpation (GI): No Abdominal aortic bruit present, Soft to palpation, nontender, No hepatosplenomegaly present and No Rebound tenderness present Auscultation: normal bowel sounds General: Yes no CVA tenderness Back/Spine/Pelvis Back: no CVA tenderness Cervical Spine: cervical ROM normal and No Cervical spine tenderness Thoracic/Lumbar Spine: thoraco-lumbar ROM normal, No pain with thoraco-lumbar ROM, No thoracic spinal tenderness and No lumbar spinal tenderness Extrem General: Yes normal to inspection, No edema and No calf tenderness Skin General: warm and dry. Normal skin color. Normal skin turgor Lesions: no lesions Rashes: Brown/slightly red patches noted to the top and bottom of the sternum, consistent with fungal rash Trauma: no lacerations or abrasions Wounds: no wounds Nails: normal Neuro General: patient oriented x3, gait normal and no focal neuro deficit Cranial nerves: Yes Equal, round and reactive pupils present Cognition (Neuro): normal cognition Gait exam (Neuro): Normal gait present Sensory Exam: No Sensory deficit (Neuro) Psych Appearance: grossly normal Affect: normal affect Attitude: cooperative Thought process: Normal thought process present Assessment and Plan Assessment & Plan (1) Rash: Code(s): R21 - Rash and other nonspecific skin eruption Plan: Brown/slightly red patches noted to the top and bottom of the sternum, consistent with fungal rash Ketoconazole cream ordered. Advised to use as prescribed. Instructed on the risks, benefits, and potential adverse reactions of the medication Follow-up in 2-4 weeks with worsening or new symptoms Verbalized understanding and agreed with the treatment plan Medications: New ketoconazole 2% 1 appl topical BID 30 grams 0RF Coding Level of Care Code Est Pt Level 3 (98444) Diagnoses Rash R21
== END 2023-12-27 17:10 | disposition home or self-care (01) ==
PROVIDERS: PCP Hospitalist; Visit Provider Nurse Practitioner Family
DX: R21 Rash and other nonspecific skin eruption (principal)
CPT/HCPCS: 99213

== ENCOUNTER 2024-03-27 09:23 | Outpatient (AMB) | payer OTHER, SELFPAY ==
[2024-03-27 09:29] VITALS: BP 98/60; BMI 19.9
--- NOTE | 2024-03-27 09:29 | MHC.OFFVIS ---
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 Then she took a break for several months and use condoms and then she started back on control pills so she would not have to worry about condom use again but after starting back on the control pills she experienced a return of the lower libido and vaginal dryness that she had been having while on then Nexplanon. That had gotten better for several of the months that she had been off the pill. But those symptoms have resumed and she is wondering if there is a different pill were another option. During this visit we explored several things her Nexplanon was originally inserted she says because she had really heavy crampy periods that were notable in how they affected her. Discussed options including considering a slightly increased estrogen but maintaining low-dose control pills versus considering hormone free IUD versus a Mirena or Kyleena IUD discussed the pros and cons of all of the methods and detail about the side effects. For now she has chosen to try a slightly increased estrogen control pill and will do her own research about the 3 IUDs discussed insertion and timing of it and the expected side effect profile of each of them and the potential down falls as well. We will see her at her June visit for review of all the options and her annual. We will also see how she is doing on the pills then prescribing today discussed switching over she is on day 9 of her pill pack it would be acceptable for her to simply start over with a new pack at this time she has not missed any pills her period Would therefore be a week later. 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 Cognitive needs: No Hearing needs: No Vision needs: No Female Reproductive History Menstrual Age of Menarche: 14 Duration of menses: 3-5 days Date of last menstrual period: 03/14/24 control method: pills Total pregnancies: 0 Date of last pap smear: 08/04/21 (neg.) History of abnormal pap smear: No Physical Exam Vital Signs: Last Vital Signs BP 98/60 03/27/24 09:29 BMI result Body Mass Index 19.9 Results Reviewed Results Reviewed: Name: Jennifer Kahn Age/Sex: 32/F Attending: Cate Witt CNM : 1990 Submitted by: Cate Witt CNM Copies to: MR #: [id number] Status: DEP REF Collected: 06/04/22 Location: [facility] Received: 06/04/22 Interpretation General Category: Negative for intraepithelial lesion/malignancy. Adequacy: Endocervical component present. Interpretation: Reactive cellular changes. HPV mRNA E6/E7: NOT DETECTED This assay detects E6/E7 viral messenger RNA (mRNA) from 14 high-risk HPV types (16, 18, 31, 33, 35, 39, 45, 51, 52, 56, 58, 59, 66, 68) HPV testing performed by [facility], [place], [place]. See reference laboratory portion of the EMR for entire report. Clinical Information LMP: 04/2022 Previous PAP test: Unknown, WNL Material Received ThinPrep-Cervical Electronically Signed By: Jane George 06/23/221923 The Pap Test is a screening procedure with the inherent possibility of both false negative and false positive results. Results should be interpreted in the context of historic and current clinical findings. Reliability of the Pap Test is enhanced by performing the test on a regular repetitive basis. Patient: Jennifer Kahn Age/Sex: 32/F MR#: [id number] Page 1 of 1 Assessment & Plan Assessment & Plan (1) Low libido: Code(s): R68.82 - Decreased libido Category: Medical (2) Vaginal dryness: Code(s): N89.8 - Other specified noninflammatory disorders of vagina Category: Medical Plan Here for discussion about her control pills she had been on Nexplanon for for sequential Nexplanon. Then she took a break for several months and use condoms and then she started back on control pills so she would not have to worry about condom use again but after starting back on the control pills she experienced a return of the lower libido and vaginal dryness that she had been having while on then Nexplanon. That had gotten better for several of the months that she had been off the pill. But those symptoms have resumed and she is wondering if there is a different pill were another option. During this visit we explored several things her Nexplanon was originally inserted she says because she had really heavy crampy periods that were notable in how they affected her. Discussed options including considering a slightly increased estrogen but maintaining low-dose control pills versus considering hormone free IUD versus a Mirena or Kyleena IUD discussed the pros and cons of all of the methods and detail about the side effects. For now she has chosen to try a slightly increased estrogen control pill and will do her own research about the 3 IUDs discussed insertion and timing of it and the expected side effect profile of each of them and the potential down falls as well. We will see her at her June visit for review of all the options and her annual. We will also see how she is doing on the pills then prescribing today discussed switching over she is on day 9 of her pill pack it would be acceptable for her to simply start over with a new pack at this time she has not missed any pills her period Would therefore be a week later. Medications: New desogestrel-ethinyl estradiol 0.15-0.03 mg 1 tab PO DAILY 84 tabs 4RF Discontinued norethindrone-e.estradiol-iron 1 mg-20 mcg (24)/75 mg (4) Discontinued Reason: Doctor's Order 1 tab PO DAILY 84 tabs 4RF Coding Level of Care Code Est Pt Level 3 (33401) Diagnoses Low libido R68.82 Vaginal dryness N89.8
== END 2024-03-27 11:00 | disposition home or self-care (01) ==
PROVIDERS: PCP Hospitalist; Visit Provider Advanced Practice Midwife
DX: R68.82 Decreased libido (principal); N89.8 Other specified noninflammatory disorders of vagina
CPT/HCPCS: 99213

== ENCOUNTER → 2024-03-27 09:23 | Outpatient (BNVA) | payer OTHER, SELFPAY | PROVIDERS: PCP Hospitalist; Visit Provider Advanced Practice Midwife ==

== ENCOUNTER 2024-07-04 09:20 | Outpatient (AMB) | payer OTHER, SELFPAY ==
[2024-07-04 09:25] VITALS: BP 100/60; BMI 19.9
--- NOTE | 2024-07-04 09:25 | A.OFFVIS_ITS ---
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 She had very severe menstrual cramps on May 13 and went the emergency hospital she had a full evaluation including u/s and was diagnosed w dysmenorrhea. she had started on ocps at age 18 for heavy periods, and remained on control until recently ( with 4 sequential nexplanons, and then transitioned to ocps.) She experience loss of libido and vaginal dryness and other side effects more and more, and made a decision to stop ocps and all hormonal methods. The painful period in april was the first full post ocp effect menses. On the whole, she feels better being off of OCPS and hormonal control, despite the cramps and pms symptoms. She is using cycle awareness, condoms,and pull-out as her current means of control depending on where she is in cycle. 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 Cognitive needs: No Hearing needs: No Vision needs: No Female Reproductive History Menstrual Age of Menarche: 14 Duration of menses: <3 days Date of last menstrual period: 06/10/24 control method: none Total pregnancies: 0 Date of last pap smear: 06/04/22 (neg.) History of abnormal pap smear: No Physical Exam Vital Signs: Last Vital Signs BP 100/60 07/04/24 09:25 BMI result Body Mass Index 19.9 Assessment & Plan Assessment & Plan (1) control counseling: Code(s): Z30.09 - Encounter for other general counseling and advice on contraception Category: Medical (2) Dysmenorrhea, unspecified: Code(s): N94.6 - Dysmenorrhea, unspecified Category: Medical Plan I reviewed everything in HPI including her awareness of her cycles and her preference for what she wishes to do now of the balance of choice that needs to be made between hormonal methods control to help ameliorate menstrual symptoms versus their side effects. On the whole she would rather be off of hormonal control and feels best in her body overall she however is c oncerned in case she gets a very severe menstrual cramps in the future. We discussed ways to take nonsteroidal anti inflammatories such as ibuprofen or naproxen and she would rather stay with ibuprofen and I am prescribing 600 for her to take every 6 hours with food in her stomach at the start of her menses. Discussed strategies for being sure she has some food in her stomach before taking it also providing her know for work. We will see her for annual exam. 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 Also reviewed that any potential diagnosis of endometriosis would require laparoscopic diagnostic efforts and treatments involve hormonal manipulation. Medications: New levonorgestrel (Plan B One-Step) 1.5 mg PO ONCE 1 tab 4RF ibuprofen for dysmenorrhea, alway take with food in stomach 600 mg PO Q6H PRN 100 tabs 1RF pain Coding Level of Care Code Est Pt Level 3 (19663) Diagnoses control counseling Z30.09 Dysmenorrhea, unspecified N94.6
== END 2024-07-04 10:24 | disposition home or self-care (01) ==
PROVIDERS: PCP Hospitalist; Visit Provider Advanced Practice Midwife
DX: Z30.09 Encounter for other general counseling and advice on contraception (principal); N94.6 Dysmenorrhea, unspecified
CPT/HCPCS: 99213